=== PATIENT | male | born 1995 | race Caucasian/White ===

== ENCOUNTER 2019-03-13 23:48 | Emergency (ER) | payer MEDICAID ==
[~2019-03-13] VITALS: Ht 180.3 cm; Wt 69.0 kg
[2019-03-14] MEDS ORDERED: ALBUTEROL SULFATE 2.5 MG/3 ML ONE (00:13)
[2019-03-14] MEDS ORDERED: ALBUTEROL SULFATE 2.5 MG/3 ML NPPB ONE (00:30)
[2019-03-14 00:42] VITALS: BP 112/74
== END 2019-03-14 00:44 | disposition home or self-care (01) ==
LOC: ED 03-14 00:38
DX: J45.41 Moderate persistent asthma with (acute) exacerbation (principal); F17.200 Nicotine dependence, unspecified, uncomplicated
CPT/HCPCS: 94640; 99283; J7512; J7613

== ENCOUNTER 2019-04-10 16:43 | Emergency (ER) | payer OTHER ==
[~2019-04-10] VITALS: Ht 177.8 cm; Wt 66.0 kg
--- NOTE | 2019-04-10 16:59 | NUR ---
THIS IS A 23 Y/O MALE THAT ARRIVES TO ED WITH C/O COUGH AND BREATHING DIFFICULTY. PT REPORTS THAT HE WAS ILL ABOUT 1 WEEK WITH THE FLU. PT REPORTS HE HAS HX OF ASTHMA AND USED UP HIS INHALER AND NO RELIEF. PT DENEIS TRAUMA. PT CONNECTED TO MONITORS AND CALL LIGHT IN REACH. AWAITING FURTHER ORDERS.
[2019-04-10] MEDS ORDERED: ALBUTEROL/IPRATROPIUM 2.5MG/0.5MG, 3 ML ONE (17:20)
[2019-04-10] MEDS ORDERED: ALBUTEROL/IPRATROPIUM 2.5MG/0.5MG, 3 ML NPPB PRN (17:30)
--- NOTE | 2019-04-10 17:45 | NUR ---
TASK RN. Pt sitting on gurney watching TV connected to NIBP cuff, continous pulse ox, and manager monitoring. Call light within reach. Pt states, "I am feeling better, the respiratory therapist gave me this (spacer)". NADN. No needs expressed.
--- NOTE | 2019-04-10 19:09 | NUR ---
AWAITING SW TO SEE PT TO ACQUIRE NEBULIZER FOR HIM.
[2019-04-10 19:41] VITALS: BP 110/54
--- NOTE | 2019-04-10 19:41 | NUR ---
Patient/Caregiver given discharge instructions and they have confirmed that they understand the instructions. Patient ambulatory with steady gait.
== END 2019-04-10 19:43 | disposition home or self-care (01) ==
LOC: ED 17:11
DX: J45.41 Moderate persistent asthma with (acute) exacerbation (principal)
CPT/HCPCS: 93005; 94640; 99283; J7620